=== PATIENT | male | born 1990 | race Caucasian/White ===

== ENCOUNTER 2023-10-01 20:46 | Emergency (ER) | payer OTHER ==
[~2023-10-01] VITALS: Ht 175.3 cm; Wt 117.9 kg
[2023-10-01 20:48] VITALS: BP 120/71; PULSE 87; RESP 17; TEMP 97.8; O2SAT 96
[2023-10-01 22:20] VITALS: BP 120/71; PULSE 87; RESP 17; TEMP 97.8; O2SAT 96
== END 2023-10-01 22:20 | disposition home or self-care (01) ==
LOC: MED 20:46
DX: S52.042A Displaced fracture of coronoid process of left ulna, initial encounter for closed fracture (principal); Z88.5 Allergy status to narcotic agent; Z88.8 Allergy status to other drugs, medicaments and biological substances; W01.0XXA Fall on same level from slipping, tripping and stumbling without subsequent striking against object, initial encounter; Y92.89 Other specified places as the place of occurrence of the external cause; Y93.89 Activity, other specified; Y99.8 Other external cause status
CPT/HCPCS: 73080; 73090; 99284